=== PATIENT | male | born 1960 | race Caucasian/White ===

== ENCOUNTER → 2016-06-09 | Outpatient (CLI) | payer BC ==
[~2016-06-09] MED LIST: ESCI20TA30 PO; GABA-338 PO; LEVE500T26 PO; OXYC-426 PO; OXYC-533 PO; PANT40TA27 PO; PROP10TA10 PO
--- NOTE | 2016-06-09 15:29 | DI ---
Indication: ITS.REASON: R52 PAIN PROCEDURE: LUMBAR SPINE COMP W/O BEND: Encounter: Initial Comparison: Renal CT from today no acute fracture or subluxation seen. Findings: Alignment of the lumbar spine is within normal limits. No acute fracture. The oblique views show no pars defects. Moderate disk space narrowing at L4-L5. Mild disk space narrowing at L5-S1. The remaining disk spaces are normal. 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 .
--- NOTE | 2016-06-10 11:09 | DI ---
Indication: ITS.REASON: N28.89 HEMATOMA OF KIDNEY PROCEDURE: CT RENAL W/O CONTRAST: Encounter: Initial Comparison: CT abdomen and pelvis dated September 26, 2014 Technique: Axial CT images were performed through the abdomen and pelvis without intravenous contrast. Coronal and sagittal two-dimensional reformats. Automated Exposure Control and Iterative Reconstruction dose reducing techniques were utilized. Findings: Stable benign 5 mm right lower lobe pulmonary nodule with some chronic scarring in the right middle lobe. Small fat-containing right posterior diaphragmatic defect. The unenhanced contours of the liver, gallbladder, spleen with accessory splenule, pancreas and adrenal glands are within normal limits. Small hiatal hernia. The right kidney appears normal. Left kidney appears normal. No evidence of acute or subacute renal hematoma. No renal or ureteral stone disease. No abdominal or pelvic lymphadenopathy. Bladder appears normal. Prostate and rectum are within normal limits. No free fluid or evidence of bowel obstruction. Bone windows are unchanged. Impression: No acute disease process seen. No renal hematoma identified. .
== END ==
LOC: IMA 14:18
PROVIDERS: ATTEND Family Medicine
DX: M51.36 Other intervertebral disc degeneration, lumbar region (principal); M51.37 Other intervertebral disc degeneration, lumbosacral region; N28.89 Other specified disorders of kidney and ureter